=== PATIENT | male | born 1975 | race Caucasian/White ===

== ENCOUNTER 2018-06-28 02:41 | Emergency (ER) | payer BC ==
[~2018-06-28] VITALS: Ht 180.3 cm; Wt 102.3 kg
[2018-06-28 02:46] VITALS: Ht 180.3 cm; Wt 102.3 kg
[2018-06-28] MEDS ORDERED: LISINOPRIL2.5 MG (02:47)
[2018-06-28] MEDS ORDERED: HYDROCHLOROTH12.5 M1 (02:47)
[2018-06-28 03:32] LABS: BASOPHILS 0.1 % (0-2); EOSINOPHILS 2.2 % (0-7); HEMATOCRIT 43.5 % (42.0-54.0); HEMOGLOBIN 15.8 g/dL (13.5-17.5); IMMATURE GRANULOCYTES 0.1 % (0-5); MCH 31.9 pg (26.0-34.0); MCHC 36.3 g/dL (31.0-37.0); MCV 87.7 fL (80.0-100.0); MEAN PLATELET VOLUME 9.4 fL (7.4-10.4); NEUTROPHILS 43.6 % (40-80); PLATELET COUNT 174 10x3/uL (130-400); RBC 4.96 10x6/uL (4.20-6.10); RDW 12.9 % (11.5-14.5); WBC 8.2 10x3/uL (4.8-10.8)
[2018-06-28 03:41] LABS: CALC OSMOLALITY 281 mosm/kg (275-300); CARBON DIOXIDE 26.6 mmol/L (21.0-32.0); CHLORIDE - SERUM 99 mmol/L (98-107); GLUCOSE 222 mg/dL (74-106); POTASSIUM - SERUM 3.8 mmol/L (3.5-5.1); SODIUM 137 mmol/L (136-145); UREA NITROGEN 16 mg/dL (7-18); eGFR NON AFRICAN AMERICAN 87 mL/min (90-120)
[2018-06-28 04:05] VITALS: BP 121/77
== END 2018-06-28 04:05 | disposition home or self-care (01) ==
LOC: D.ER 02:41
PROVIDERS: Emergency Medicine
DX: G43.909 Migraine, unspecified, not intractable, without status migrainosus (principal); E11.9 Type 2 diabetes mellitus without complications; I10 Essential (primary) hypertension; K21.9 Gastro-esophageal reflux disease without esophagitis

== ENCOUNTER 2019-08-23 14:44 | Inpatient (IN) | payer OTHER ==
[~2019-08-23] VITALS: Ht 180.3 cm; Wt 110.8 kg
[~2019-08-23 14:44] MED LIST: HYDROCHLOROTH12.5 M1; LISINOPRIL2.5 MG
[2019-08-23 18:05] LABS: HEMATOCRIT 44.6 % (42.0-54.0); MCH 33.4 pg (26.0-34.0); MCHC 38.1 g/dL (31.0-37.0); MCV 87.6 fL (80.0-100.0); MEAN PLATELET VOLUME 10.2 fL (7.4-10.4); PLATELET COUNT 168 10x3/uL (130-400); RBC 5.09 10x6/uL (4.20-6.10); RDW 12.5 % (11.5-14.5)
[2019-08-23 18:21] LABS: BILIRUBIN - TOTAL 1.03 mg/dL (0.2-1.3); CARBON DIOXIDE 25.3 mmol/L (21.0-32.0); CHLORIDE - SERUM 91 mmol/L (98-107); CKMB 0.3 U/L (0.0-3.6); POTASSIUM - SERUM 3.9 mmol/L (3.5-5.1); SODIUM 127 mmol/L (136-145); TROPONIN-I < 0.017 ng/mL (0.000-0.060)
[2019-08-23 18:25] LABS: ALBUMIN 3.2 g/dL (3.4-5.0); ALKALINE PHOSPHATASE 91 U/L (46-116); CALC OSMOLALITY 270 mosm/kg (275-300); CALCIUM 6.9 mg/dL (8.5-10.1); CREATINE KINASE 52 UL (21-232); CREATININE - SERUM 0.7 mg/dL (0.6-1.3); PROTEIN - SERUM 6.7 g/dL (6.4-8.2); UREA NITROGEN 10 mg/dL (7-18); eGFR NON AFRICAN AMERICAN > 90 mL/min (90-120)
[2019-08-23 18:31] LABS: GLUCOSE 412 mg/dL (74-106)
[2019-08-23 18:50] LABS: LYMPHOCYTES 37 % (15-50); MONOCYTES 2 % (2-11); NEUTROPHILS 58 % (40-80); PLATELET ESTIMATE NORMAL
[2019-08-23 18:55] LABS: APPEARANCE CLEAR (CLEAR); BILIRUBIN NEGATIVE (NEGATIVE); COLOR YELLOW (YELLOW); GLUCOSE 1000 mg/dL (NEGATIVE); KETONE MODERATE mg/dL (NEGATIVE); NITRITE NEGATIVE (NEGATIVE); PROTEIN NEGATIVE (NEGATIVE); SPECIFIC GRAVITY 1.015 (1.005-1.020); UROBILINOGEN NORMAL (NORMAL)
[2019-08-23 18:58] LABS: UDS - AMPHET NEGATIVE QUAL (NEGATIVE); UDS - BARB NEGATIVE QUAL (NEGATIVE); UDS - BENZO NEGATIVE QUAL (NEGATIVE); UDS - COCAINE NEGATIVE QUAL (NEGATIVE); UDS - OPIATE NEGATIVE QUAL (NEGATIVE); UDS - PCP NEGATIVE QUAL (NEGATIVE); UDS - THC NEGATIVE QUAL (NEGATIVE)
[2019-08-23 19:02] LABS: ALT (SGPT) 65 U/L (10-68)
[2019-08-23 19:53] LABS: THYROID STIMULATING HORMONE 1.72 uIU/mL (0.36-3.74)
[2019-08-23 19:54] LABS: T4 THYROXINE 10.7 ug/dL (4.7-13.3)
--- NOTE | 2019-08-23 20:08 | NUR ---
PT RESTING ON BED. NO S/S OF ACUTE DISTRESS NOTED. PT AWAKE AND ALERT. PT UPDATED ON PLAN OF CARE.
--- NOTE | 2019-08-23 20:30 | NUR ---
PT C/O PORTER, BACK PAIN, AND CONCERNED ABOUT BP SINCE HE DID NOT TAKE BP MEDS TODAY. PT BP 145/98, JORDY HIGUERA NOTIFIED.
--- NOTE | 2019-08-23 21:48 | NUR ---
PT RESTING ON BED. PT FAMILY AT BEDSIDE.
[2019-08-23 22:58] VITALS: BP 152/93; Ht 180.3 cm; Wt 110.8 kg
[2019-08-23] MEDS ORDERED: LISINOPRIL-HCT1 EAC7 PO (23:08)
[2019-08-23] MEDS ORDERED: ELAVIL10 MG PO (23:08)
[2019-08-23] MEDS ORDERED: LIPITOR10 MG PO (23:09)
[2019-08-23] MEDS ORDERED: OMEPRAZOLE20 M1 PO (23:09)
[2019-08-23] MEDS ORDERED: ATIVAN0.5 MG PO (23:10)
--- NOTE | 2019-08-23 23:36 | NUR ---
PAGENaya RASMUSSEN IN REGARDS TO PATIENT'S 357 BLOOD SUGAR
--- NOTE | 2019-08-23 23:39 | NUR ---
GRADY AUTHORIZED A ONE TIME DOSE USING THE PATIENT'S CURRENT SLIDING SCALE
--- NOTE | 2019-08-24 03:42 | NUR ---
PAGED GRADY PER PATIENT'S REQUEST IN REGARDS TO BACK PAIN.
[2019-08-24 03:54] VITALS: BP 134/98
[2019-08-24 05:11] LABS: MAGNESIUM - SERUM 1.9 mg/dL (1.8-2.4)
[2019-08-24 05:12] LABS: PHOSPHOROUS 4.7 mg/dL (2.5-4.9)
[2019-08-24 05:13] LABS: GLUCOSE 368 mg/dL (74-106); UREA NITROGEN 14 mg/dL (7-18)
[2019-08-24 05:14] LABS: CALC OSMOLALITY 281 mosm/kg (275-300); POTASSIUM - SERUM 3.6 mmol/L (3.5-5.1); eGFR NON AFRICAN AMERICAN 87 mL/min (90-120)
[2019-08-24 05:15] LABS: CARBON DIOXIDE 28.6 mmol/L (21.0-32.0)
[2019-08-24 05:16] LABS: CALCIUM 6.9 mg/dL (8.5-10.1); CHLORIDE - SERUM 98 mmol/L (98-107); SODIUM 133 mmol/L (136-145)
[2019-08-24 05:17] LABS: ALKALINE PHOSPHATASE 78 U/L (46-116); ALT (SGPT) 61 U/L (10-68)
[2019-08-24 05:18] LABS: ALBUMIN 3.2 g/dL (3.4-5.0); BILIRUBIN - TOTAL 0.28 mg/dL (0.2-1.3); PROTEIN - SERUM 5.9 g/dL (6.4-8.2)
[2019-08-24 08:07] VITALS: BP 141/95
--- NOTE | 2019-08-24 08:23 | NUR ---
[facility] "MY BACK IS HURTING IN THE RIGHT LOWER AND THEY STILL HAVE NOT DONE A MRI ON IT. " EXPLAINED TO PT THAT I WOULD SPEAK TO THE MD WHEN THEY ROUND. NO S/S OF ACUTE DISTRESS. CL IN PLACE.
--- NOTE | 2019-08-24 09:15 | NUR ---
CALLED [facility] ABOUT PT REQUEST, "I AM HAVING BACK PAIN AND THAT IS WHY I CAME IN. I FIGURED THEY WOULD DO AN MRI." REPORTED CONVERSATION, CA-6.9, NA-133, BP THIS AM AND NO BP MED ON RECORD TO BE GIVEN. TO FOR LISINOPRIL 20MG FIRST DOSE NOW.
[2019-08-24 12:31] LABS: HEMATOCRIT 41.2 % (42.0-54.0); HEMOGLOBIN 15.4 g/dL (13.5-17.5); MCH 33.2 pg (26.0-34.0); MCHC 37.4 g/dL (31.0-37.0); MCV 88.8 fL (80.0-100.0); MEAN PLATELET VOLUME 10.9 fL (7.4-10.4); PLATELET COUNT 170 10x3/uL (130-400); RBC 4.64 10x6/uL (4.20-6.10); RDW 12.7 % (11.5-14.5); WBC 4.7 10x3/uL (4.8-10.8)
[2019-08-24 12:48] VITALS: BP 137/89
[2019-08-24 12:53] LABS: EOSINOPHILS 4 % (0-7); LYMPHOCYTES 50 % (15-50); MONOCYTES 3 % (2-11); NEUTROPHILS 41 % (40-80); PLATELET ESTIMATE NORMAL
--- NOTE | 2019-08-24 13:59 | NUR ---
DC IV WITH TIP INTACT. NO REDDNESS OR SWELLING NOTED.
[2019-08-24] MEDS ORDERED: VALTREX500 MG PO ×2 (14:23→14:27)
[2019-08-24] MEDS ORDERED: GLUCOTROL 5 MG T5 MG PO (14:23)
[2019-08-24] MEDS ORDERED: PREDNISONE20 MG PO (14:23)
--- NOTE | 2019-08-24 16:18 | NUR ---
DC INSTRUCTIONS AND EDUCATION DONE WITH PT AND FAMILY. FAMILY AGREES THEY DO HAVE LANCETS AND GLUCOMETER AND TEST STRIPS. NO S.S OF ACUTE DISTRESS. CL IN PLACE.
--- NOTE | 2019-08-24 16:31 | MORECARE ---
CASE MANAGEMENT DISCHARGE SUMMARY PATIENT: RICARDA TAYLOR UNIT: [id number] ADM DATE: 08/23/19 AGE: 43 : 75 SEX: M ROOM/BED: D.1209 AUTHOR: SULMA MCFADDEN PHYSICIAN: REFERRING PHYSICIAN: SHANIKA STILES DO DATE OF SERVICE: 08/24/19 Discharge Plan Patient Name: RICARDA TAYLOR [facility] [facility] 1975 Planned Disposition: Home Anticipated Discharge Date: 08/24/19 Discharge Date: 08/24/2019 Expected LOS: 1 Initial Reviewer: [email or web address] Initial Review Date: 08/23/2019 Generated: 08/24/19 5:30 pm Patient Name: RICARDA TAYLOR Page 89158 at 1631 All edits/amendments must be made on the electronic document DICTATION DATE: 08/24/19 1630 SUPERVISOR HEAVY EQUIPMENT: ROB 08/24/19 1630 RPT#: [id number] DC DATE:08/24/19 STATUS: DIS IN [facility] [address] [place] [address] END OF REPORT
--- NOTE | 2019-08-24 16:38 | MORECARE ---
CASE MANAGEMENT DISCHARGE SUMMARY PATIENT: RICARDA TAYLOR UNIT: [id number] ADM DATE: 08/23/19 AGE: 43 : 75 SEX: M ROOM/BED: D.1209 AUTHOR: SULMA MCFADDEN PHYSICIAN: REFERRING PHYSICIAN: SHANIKA STILES DO DATE OF SERVICE: 08/24/19 Discharge Plan Patient Name: RICARDA TAYLOR [facility] 1975 Planned Disposition: Home Anticipated Discharge Date: 08/24/19 Discharge Date: 08/24/2019 Expected LOS: 1 Initial Reviewer: [email or web address] Initial Review Date: 08/23/2019 Generated: 08/24/19 5:37 pm DCPIA - Discharge Planning Initial Assessment Updated by [email or web address]: Holly Capmos on 08/24/19 4:32 pm * Is the patient Alert and Oriented? Yes * How many steps to enter\exit or inside your home? 5 w/ rail * PCP DR KING * Pharmacy [facility] ON [facility] * Preadmission Environment Home with Family * ADLs Independent * Equipment None * Other Equipment DENIES ANY DME * List name and contact numbers for known caregivers / representatives who currently or will assist patient after discharge: RANDALL TAYLOR- [phone]- * Verbal permission to speak to the caregivers and representatives has been obtained from the patient. No * Community resources currently utilized None * Please name any agencies selected above. N/A * Additional services required to return to the preadmission environment? No * Can the patient safely return to the preadmission environment? Yes * Has this patient been hospitalized within the prior 30 days at any hospital? No Last DP export: 08/24/19 3:31 p Patient Name: RICARDA TAYLOR Page [phone] at 1638 All edits/amendments must be made on the electronic document DICTATION DATE: 08/24/191636 SALES REPRESENTATIVE RAW FIBERS: ROB 08/24/19 1637 RPT#: [id number] DC DATE:08/24/19 STATUS: DIS IN [facility] [address] [place] [address] END OF REPORT
--- NOTE | 2019-08-24 16:50 | MORECARE ---
CASE MANAGEMENT DISCHARGE SUMMARY PATIENT: RICARDA TAYLOR UNIT: [id number] ADM DATE: 08/23/19 AGE: 43 : 75 SEX: M ROOM/BED: D.1209 AUTHOR: SULMA MCFADDEN PHYSICIAN: REFERRING PHYSICIAN: SHANIKA STILES DO DATE OF SERVICE: 08/24/19 Discharge Plan Patient Name: RICARDA TAYLOR Facility: [facility]:[place] : 1975 Planned Disposition: Home Anticipated Discharge Date: 08/24/19 Discharge Date: 08/24/2019 Expected LOS: 1 Initial Reviewer: [email or web address] Initial Review Date: 08/23/2019 Generated: 08/24/19 5:50 pm Comments DCP- Discharge Planning Updated by [email or web address]: Holly Campos on 08/24/19 3:[address] LATE ENTRY 1600 CM RECEIVED MD ORDER TO ASSESS FOR DISCHARGE NEEDS. CM MET WITH THE PATIENT AT BACK NURSING DESK. HE IS DRESSED AND READY TO GO HOME. CM HAD ASK THE STAFF TO CHECK WITH THE PATIENT REGARDING GLUCOMETER, LANCETS AND GLUCOSE STRIPS. HE STATED HE HAS THEM. HE CONFIRMED WITH CM THAT HE HAS THESE SUPPLIES. THE PATIENT WORKS AT [employer] AND HE UTILIZES [facility] ON [facility]. HE DENIES ANY ADDITIONAL DME OR NEED. HE DENIES THE NEED FOR ANY HOME HEALTH SERVICES OR COMMUNITY SERVICES. HIS SPOUSE, RANDALL TAYLOR, IS A NURSE. THE PATIENT HAS TRANSPORTATION TO HOME. PATIENT IS READY FOR DISCHARGE. HE HAD WANTED A COPY OF HIS XRAYS ON DISC. PRIMARY NURSE CALLED. TECHS WERE NOT AVAILABLE AT THAT TIME. PATIENT WAS PROVIDED WITH THE NUMBER FOR IMAGING TO CALL IN THE AM. RADIOLOGY WILL PREPARE THE DISC. DCPIA - Discharge Planning Initial Assessment Updated by [id number]: Holly Campos on 08/24/19 4:32 pm * Is the patient Alert and Oriented? Yes * How many steps to enter\exit or inside your home? 5 w/ rail * PCP DR KING * Pharmacy [facility] ON [facility] * Preadmission Environment Home with Family * ADLs Independent * Equipment None * Other Equipment DENIES ANY DME * List name and contact numbers for known caregivers / representatives who currently or will assist patient after discharge: RANDALL TAYLOR- [phone]- * Verbal permission to speak to the caregivers and representatives has been obtained from the patient. No * Community resources currently utilized None * Please name any agencies selected above. N/A * Additional services required to return to the preadmission environment? No * Can the patient safely return to the preadmission environment? Yes * Has this patient been hospitalized within the prior 30 days at any hospital? No Last DP export: 08/24/19 3:37 p Patient Name: RICARDA TAYLOR Page [id number] at 1650 All edits/amendments must be made on the electronic document DICTATION DATE: 08/24/191649 HEAD OF PARTNER DEVELOPMENT: ROB 08/24/191649 RPT#: [id number] DC DATE:08/24/19 STATUS: DIS IN [facility] [address] [place] [address] END OF REPORT
--- NOTE | 2019-08-25 08:57 | MORECARE ---
CASE MANAGEMENT DISCHARGE SUMMARY PATIENT: RICARDA TAYLOR UNIT: [id number] ADM DATE: 08/23/19 AGE: 43 : 75 SEX: M ROOM/BED: D.1209 AUTHOR: SULMA MCFADDEN PHYSICIAN: REFERRING PHYSICIAN: SHANIKA STILES DO DATE OF SERVICE: 08/25/19 Discharge Plan Patient Name: RICARDA TAYLOR Facility: [facility]:[place] : 1975 Planned Disposition: Home Anticipated Discharge Date: 08/24/19 Discharge Date: 08/24/2019 Expected LOS: 1 Initial Reviewer: [email or web address] Initial Review Date: 08/23/2019 Generated: 08/25/19 9:57 am Comments DCP- Discharge Planning Updated by [email or web address]: Holly Campos on 08/24/19 3:[address] LATE ENTRY 1600 CM RECEIVED MD ORDER TO ASSESS FOR DISCHARGE NEEDS. CM MET WITH THE PATIENT AT BACK NURSING DESK. HE IS DRESSED AND READY TO GO HOME. CM HAD ASK THE STAFF TO CHECK WITH THE PATIENT REGARDING GLUCOMETER, LANCETS AND GLUCOSE STRIPS. HE STATED HE HAS THEM. HE CONFIRMED WITH CM THAT HE HAS THESE SUPPLIES. THE PATIENT WORKS AT [employer] AND HE UTILIZES [facility] ON [facility]. HE DENIES ANY ADDITIONAL DME OR NEED. HE DENIES THE NEED FOR ANY HOME HEALTH SERVICES OR COMMUNITY SERVICES. HIS SPOUSE, RANDALL TAYLOR, IS A NURSE. THE PATIENT HAS TRANSPORTATION TO HOME. PATIENT IS READY FOR DISCHARGE. HE HAD WANTED A COPY OF HIS XRAYS ON DISC. PRIMARY NURSE CALLED. TECHS WERE NOT AVAILABLE AT THAT TIME. PATIENT WAS PROVIDED WITH THE NUMBER FOR IMAGING TO CALL IN THE AM. RADIOLOGY WILL PREPARE THE DISC. DCPIA - Discharge Planning Initial Assessment Updated by [email or web address]: Holly Campos on 08/24/19 4:32 pm * Is the patient Alert and Oriented? Yes * How many steps to enter\exit or inside your home? 5 w/ rail * PCP DR KING * Pharmacy [facility] ON [facility] * Preadmission Environment Home with Family * ADLs Independent * Equipment None * Other Equipment DENIES ANY DME * List name and contact numbers for known caregivers / representatives who currently or will assist patient after discharge: RANDALL TAYLOR- [phone]- * Verbal permission to speak to the caregivers and representatives has been obtained from the patient. No * Community resources currently utilized None * Please name any agencies selected above. N/A * Additional services required to return to the preadmission environment? No * Can the patient safely return to the preadmission environment? Yes * Has this patient been hospitalized within the prior 30 days at any hospital? No Last DP export: 08/24/19 3:50 p Patient Name: RICARDA TAYLOR Page [phone] at 0857 All edits/amendments must be made on the electronic document DICTATION DATE: 08/25/19856 CASH GRAIN FARMER: ROB 08/25/19856 RPT#: [id number] DC DATE:08/24/19 STATUS: DIS IN [facility] [address] [place] [address] END OF REPORT
== END 2019-08-24 16:20 | disposition home or self-care (01) | DRG 74 ==
LOC: D.ER 14:44 → D.M3 22:04
PROVIDERS: Family Medicine; Internal Medicine Nephrology; ADMIT Family Medicine; ATTEND Family Medicine
DX: G51.0 Bell's palsy (principal); E87.1 Hypo-osmolality and hyponatremia; E11.65 Type 2 diabetes mellitus with hyperglycemia; I10 Essential (primary) hypertension; E83.51 Hypocalcemia; M54.5 Low back pain; G43.909 Migraine, unspecified, not intractable, without status migrainosus; Z87.891 Personal history of nicotine dependence

== ENCOUNTER → 2020-07-28 15:38 | Outpatient (CLI) | payer OTHER ==
[2019-08-23 22:58] VITALS: BMI 34.1
[~2020-07-28 15:38] MED LIST changes: +ATIVAN0.5 MG PO; +ELAVIL10 MG PO; +GLUCOTROL 5 MG T5 MG PO; +LIPITOR10 MG PO; +LISINOPRIL-HCT1 EAC7 PO; +OMEPRAZOLE20 M1 PO; +PREDNISONE20 MG PO; +PROTONIX40 MG PO; +PROZAC20 MG PO; +REQUIP0.25 MG PO; +SOLIQUA 100 UNIT3 ML SQ; +VALTREX500 MG PO
== END | disposition home or self-care (01) ==
LOC: D.US 15:38
PROVIDERS: ATTEND Family Medicine
DX: R60.0 Localized edema (principal)

== ENCOUNTER 2020-07-28 17:25 | Inpatient (IN) | payer OTHER ==
[~2020-07-28] VITALS: Ht 180.3 cm; Wt 108.9 kg
[~2020-07-28 17:25] MED LIST changes: -PROTONIX40 MG PO; -PROZAC20 MG PO; -REQUIP0.25 MG PO; -SOLIQUA 100 UNIT3 ML SQ
--- NOTE | 2020-07-28 18:30 | NUR ---
COVID-19 SWAB OBTAINED AND SENT TO THE LAB.
[2020-07-28 18:32] LABS: BASOPHILS 0.2 % (0-2); EOSINOPHILS 2.9 % (0-7); HEMATOCRIT 44.8 % (42.0-54.0); HEMOGLOBIN 15.7 g/dL (13.5-17.5); IMMATURE GRANULOCYTES 0.1 % (0-5); LYMPHOCYTES 28.7 % (15-50); MCH 31.8 pg (26.0-34.0); MCV 90.9 fL (80.0-100.0); MEAN PLATELET VOLUME 9.3 fL (7.4-10.4); MONOCYTES 7.2 % (2-11); NEUTROPHILS 60.9 % (40-80); PLATELET COUNT 168 10x3/uL (130-400); RBC 4.93 10x6/uL (4.20-6.10); RDW 12.9 % (11.5-14.5); WBC 8.5 10x3/uL (4.8-10.8)
[2020-07-28 18:33] LABS: CALC OSMOLALITY 277 mosm/kg (275-300); CALCIUM 9.1 mg/dL (8.5-10.1); CARBON DIOXIDE 26.6 mmol/L (21.0-32.0); CHLORIDE - SERUM 101 mmol/L (98-107); CREATININE - SERUM 0.9 mg/dL (0.6-1.3); SODIUM 137 mmol/L (136-145); UREA NITROGEN 11 mg/dL (7-18); eGFR NON AFRICAN AMERICAN > 90 mL/min (90-120)
[2020-07-28 18:35] LABS: GLUCOSE 193 mg/dL (74-106)
[2020-07-28 18:36] LABS: APTT 26.1 SECONDS (22.8-39.4); PROTIME 13.2 SECONDS (11.6-15.0)
[2020-07-28 18:39] LABS: ALBUMIN 3.5 g/dL (3.4-5.0); ALKALINE PHOSPHATASE 93 U/L (30-120); ALT (SGPT) 40 U/L (10-68); BILIRUBIN - TOTAL 0.78 mg/dL (0.2-1.3); PROTEIN - SERUM 7.7 g/dL (6.4-8.2)
--- NOTE | 2020-07-28 19:00 | NUR ---
REPORT TO JENY GAMEZ
[2020-07-28] MEDS ORDERED: PROTONIX40 MG PO (22:38)
[2020-07-28] MEDS ORDERED: PROZAC20 MG PO (22:38)
[2020-07-28] MEDS ORDERED: REQUIP0.25 MG PO (22:39)
[2020-07-28] MEDS ORDERED: SOLIQUA 100 UNIT3 ML SQ (22:40)
--- NOTE | 2020-07-28 23:00 | NUR ---
PT BROUGHT TO FLOOR VIA STRETCHER, AMBULATED TO BED WITHOUT DIFFICULTY. RIGHT LEG RED AND SWOLLEN. PROPPED ON PILLOW. STATES PAIN 4/10 AT THIS TIME. STATES IT HURTS TO WALK ON. IV RIGHT HAND INFUSING NS @ 75. FSBS 312, GAVE INSULIN ORDERED, SEE MAR. PROVIDED WATER. DENIES OTHER NEEDS AT THIS TIME. CL IN REACH, WILL CTM
[2020-07-29] MEDS ORDERED: GLUCOTROL 5 MG T5 MG PO (00:53)
[2020-07-29 01:24] VITALS: BMI 33.5
[2020-07-29 04:00] VITALS: BP 130/86
[2020-07-29 07:04] LABS: BASOPHILS 0.3 % (0-2); EOSINOPHILS 3.3 % (0-7); HEMATOCRIT 44.1 % (42.0-54.0); HEMOGLOBIN 14.9 g/dL (13.5-17.5); IMMATURE GRANULOCYTES 0.3 % (0-5); LYMPHOCYTES 44.1 % (15-50); MCH 31.4 pg (26.0-34.0); MCHC 33.8 g/dL (31.0-37.0); MCV 92.8 fL (80.0-100.0); MEAN PLATELET VOLUME 9.7 fL (7.4-10.4); MONOCYTES 8.4 % (2-11); NEUTROPHILS 43.6 % (40-80); PLATELET COUNT 178 10x3/uL (130-400); RBC 4.75 10x6/uL (4.20-6.10); WBC 7.6 10x3/uL (4.8-10.8)
--- NOTE | 2020-07-29 07:15 | NUR ---
RECEIVED BEDSIDE REPORT. PT LAYING IN BED A&O X4, DENIES PAIN. PIV IN RIGHT HAND, PATENT AND INFUSING, NO REDNESS OR SWELLING. SWELLING AND WEAKNESS IN RLE. PT ABLE TO AMBULATE WITH ONE PERSON ASSIST. EDUCATED PT ON CL AND NEEDS, VERBALIZED UNDERSTANDING. BED LOW, RAILS X2. CL IN REACH, WILL CONTINUE TO MONITOR.
[2020-07-29 07:26] LABS: INR 0.97 (0.85-1.17); PROTIME 12.8 SECONDS (11.6-15.0)
[2020-07-29 07:44] LABS: CALC OSMOLALITY 287 mosm/kg (275-300); CALCIUM 8.3 mg/dL (8.5-10.1); CARBON DIOXIDE 28.6 mmol/L (21.0-32.0); CHLORIDE - SERUM 102 mmol/L (98-107); CREATININE - SERUM 0.9 mg/dL (0.6-1.3); GLUCOSE 238 mg/dL (74-106); PHOSPHOROUS 4.6 mg/dL (2.5-4.9); SODIUM 140 mmol/L (136-145); eGFR NON AFRICAN AMERICAN > 90 mL/min (90-120)
[2020-07-29 07:47] LABS: UREA NITROGEN 15 mg/dL (7-18)
[2020-07-29 09:48] VITALS: BP 117/70
--- NOTE | 2020-07-29 11:15 | NUR ---
PT C/O 04/28 PAIN, PROVIDED MEDS PER ORDER. BED LOW, CL IN REACH.
[2020-07-29 12:00] VITALS: BP 123/79
[2020-07-29 13:15] VITALS: BMI 33.4
--- NOTE | 2020-07-29 14:30 | NUR ---
PT LAYING IN BED, CRYING, STATES HE WANTS TO GO HOME. EDUCATED PT ON DVT AND RISKS. SPOKE SPOKE WITH DR ALEXANDRE AND SHE STATED PT NEEDS TO SEE DR PATEL ABOUT BEING D/C ON ELIQUIS. WILL CONTINUE TO MONITOR.
[2020-07-29 17:14] VITALS: BP 124/81
[2020-07-29 20:00] VITALS: BP 121/81
--- NOTE | 2020-07-29 21:00 | NUR ---
PT SITTING UP IN BED WITHOUT DISTRESS, AOX4. AT BEDSIDE. PT UPSET THAT DR DAVILA DID NOT COME BY TO SEE HIM TODAY, STATES HE WANTS TO GO HOME. STATES PAIN IN LEG 05/28 AT THIS TIME. GAVE MORPHINE ORDERED. PT PROVIDED LINENS AND BATHING SUPPLIES, GIVING PT BATH. DENIES OTHER NEEDS AT THIS TIME. CL IN REACH, WILL CTM
[2020-07-30] VITALS: BP 121/56
--- NOTE | 2020-07-30 01:30 | NUR ---
PT STATES HIS LEG IS HURTING REALLY BAD TONIGHT, JUST GOT UP TO USE BATHROOM. STATES PAIN 9/10. GAVE MORPHINE AND CALLED [facility]SE[facility]ERRE APN. RECIEVED ORDER FOR ONE TIME DOSE MORPHINE 1MG NOW AND START HOME DOSE OF REQUIP. GAVE ORDERED. WILL CTM
[2020-07-30 04:00] VITALS: BP 110/85
[2020-07-30 04:51] LABS: BASOPHILS 0.3 % (0-2); EOSINOPHILS 2.9 % (0-7); HEMATOCRIT 41.7 % (42.0-54.0); HEMOGLOBIN 14.3 g/dL (13.5-17.5); IMMATURE GRANULOCYTES 0.3 % (0-5); LYMPHOCYTES 37.8 % (15-50); MCH 31.6 pg (26.0-34.0); MCHC 34.3 g/dL (31.0-37.0); MCV 92.1 fL (80.0-100.0); MEAN PLATELET VOLUME 9.4 fL (7.4-10.4); MONOCYTES 5.6 % (2-11); NEUTROPHILS 53.1 % (40-80); PLATELET COUNT 180 10x3/uL (130-400); RBC 4.53 10x6/uL (4.20-6.10); RDW 12.9 % (11.5-14.5); WBC 7.7 10x3/uL (4.8-10.8)
[2020-07-30 05:06] LABS: CALC OSMOLALITY 279 mosm/kg (275-300); CALCIUM 8.1 mg/dL (8.5-10.1); CARBON DIOXIDE 29.5 mmol/L (21.0-32.0); CHLORIDE - SERUM 101 mmol/L (98-107); CREATININE - SERUM 1.1 mg/dL (0.6-1.3); GLUCOSE 220 mg/dL (74-106); MAGNESIUM - SERUM 1.8 mg/dL (1.8-2.4); PHOSPHOROUS 4.2 mg/dL (2.5-4.9); POTASSIUM - SERUM 4.1 mmol/L (3.5-5.1); SODIUM 136 mmol/L (136-145); UREA NITROGEN 14 mg/dL (7-18); eGFR NON AFRICAN AMERICAN 77 mL/min (90-120)
[2020-07-30 05:15] LABS: INR 0.95 (0.85-1.17); PROTIME 12.7 SECONDS (11.6-15.0)
[2020-07-30 05:16] LABS: APTT 38.1 SECONDS (22.8-39.4)
--- NOTE | 2020-07-30 06:15 | NUR ---
PT STATES PAIN 7/10 IN RIGHT ANKLE. GAVE MORPHINE ORDERED. FSBS 255, GAVE INSULIN PER SS, SEE MAR. DENIES OTHER NEEDS AT THIS TIME. CL IN REACH, WILL CTM
--- NOTE | 2020-07-30 07:15 | NUR ---
RECEIVED BEDSIDE REPORT. PT LAYING IN BED, A&O X4. C/O PAIN 05/28, PROVIDED PAIN MEDS PER ORDER. PIV IN RIGHT HAND, PATENT AND INFUSING, NO REDNESS OR SWELLING. RLE SLIGHTLY SWOLLEN. PT ABLE TO AMBULATE WITH ONE PERSON ASSIST. EDUCATED PT ON CL AND NEEDS, VERBALIZED UNDERSTANDING. BED LOW, RAILS X2. CL IN REACH, WILL CONTINUE TO MONITOR.
[2020-07-30 09:24] VITALS: BP 144/92
--- NOTE | 2020-07-30 09:45 | NUR ---
PT C/O OF NOT UNDERSTANDING THE CONVERSATION WITH MD, EDUCATED PT ON DVT RISKS AND MD PLAN OF CARE. PT STATED HE STILL DID NOT UNDERSTAND AND WOULD LIKE HIS TO SPEAK WITH THE MD. PAGED DR DAVILA AND SHE SPOKE WITH . HE STATED HE UNDERSTOOD AND WOULD EXPLAIN TO PT. WILL CONTINUE TO MONITOR.
[2020-07-30 11:29] VITALS: Ht 180.3 cm; Wt 108.9 kg
[2020-07-30 13:51] VITALS: BP 132/85
--- NOTE | 2020-07-30 14:26 | NUR ---
PT C/O 06/28 PAIN, PROVIDED PAIN MEDS OER ORDER.
--- NOTE | 2020-07-30 15:57 | NUR ---
PTS SPOUSE BELIEVES PT MAY HAVE A FAMILY HISTORY OF FACTOR 5 LEIDEN MUTATION, CALLED [facility]A [facility]RY AND DISCUSSED. PT WAS TESTED THIS MORNING FOR MUTATION AND WAS NEGATIVE. EDUCATED PT AND FAMILY IN REGARDS TO LAB WORK, VERBALIZED UNDERSTANDING. WILL CONTINUE TO MONITOR.
[2020-07-30 17:43] VITALS: BP 137/85
--- NOTE | 2020-07-30 19:00 | NUR ---
BEDSIDE REPORT RECEIVED AND CARE OF PT ASSUMED. PT LYING IN SUPINE POSITION WITH EYES CLOSED AND EASY RESPIRATIONS. IV TO RIGHT HAND PATENT WITH NS INFUSING AT 75 ML/HR. FAMILY MEMBER IS AT BEDSIDE.
[2020-07-30 20:00] VITALS: BP 131/79
--- NOTE | 2020-07-30 20:09 | NUR ---
HS MEDICATIONS GIVEN TO INCLUDE ATIVAN 0.5 MG PO PER PRN ORDER FOR ANXIETY.
--- NOTE | 2020-07-30 20:10 | NUR ---
FSBS 258 THIS CHECK REQUIRING COVERAGE WITH 6 UNITS OF INSULIN PER SLIDING SCALE. GAVE X2 ORANGE BILL FOR HS SNACK.
[2020-07-31] VITALS: BP 110/70
[2020-07-31 04:00] VITALS: BP 106/73
[2020-07-31 06:29] LABS: BASOPHILS 0.3 % (0-2); EOSINOPHILS 3.1 % (0-7); HEMATOCRIT 42.8 % (42.0-54.0); HEMOGLOBIN 14.7 g/dL (13.5-17.5); IMMATURE GRANULOCYTES 0.1 % (0-5); LYMPHOCYTES 32.7 % (15-50); MCH 31.4 pg (26.0-34.0); MCHC 34.3 g/dL (31.0-37.0); MCV 91.5 fL (80.0-100.0); MEAN PLATELET VOLUME 9.1 fL (7.4-10.4); MONOCYTES 7.4 % (2-11); NEUTROPHILS 56.4 % (40-80); PLATELET COUNT 174 10x3/uL (130-400); RBC 4.68 10x6/uL (4.20-6.10); RDW 12.7 % (11.5-14.5); WBC 7.4 10x3/uL (4.8-10.8)
[2020-07-31 06:50] LABS: INR 0.99 (0.85-1.17); PROTIME 13.1 SECONDS (11.6-15.0)
[2020-07-31 06:54] LABS: APTT 27.3 SECONDS (22.8-39.4)
[2020-07-31 07:09] LABS: CALC OSMOLALITY 276 mosm/kg (275-300); CARBON DIOXIDE 26.1 mmol/L (21.0-32.0); CHLORIDE - SERUM 98 mmol/L (98-107); CREATININE - SERUM 0.8 mg/dL (0.6-1.3); GLUCOSE 200 mg/dL (74-106); PHOSPHOROUS 4.5 mg/dL (2.5-4.9); POTASSIUM - SERUM 4.3 mmol/L (3.5-5.1); SODIUM 135 mmol/L (136-145); UREA NITROGEN 14 mg/dL (7-18); eGFR NON AFRICAN AMERICAN > 90 mL/min (90-120)
--- NOTE | 2020-07-31 07:46 | NUR ---
ALERT AND ORIENTED. LUNGS CLEAR BILATERALLY. HEART SOUNDS S1 AND S2 HEARD IN ALL MURPHY. BOWEL SOUNDS ACTIVE X 4. IV TO RIGHT HAND PATENT WITHOUT REDNES. DENIES NEEDS. BED LOW. CALL ROBISON AND PERSONAL ITEMS IN REACH. WILL CONTINUE TO MONITOR.
[2020-07-31 08:14] LABS: PSA - FREE 0.29 ng/mL
[2020-07-31 09:54] VITALS: BP 124/78
[2020-07-31] MEDS ORDERED: ELIQUIS5 MG PO (11:33)
--- NOTE | 2020-07-31 12:23 | NUR ---
PATIENT SLEEPING. WILL CONTINUE TO MONITOR.
[2020-07-31 12:43] VITALS: BP 134/84
[2020-07-31] MEDS ORDERED: HYDROCODON-ACE1 EA10 PO (12:48)
--- NOTE | 2020-07-31 13:33 | NUR ---
DISCHARGE EDUCATION PROVIDED BOTH WRITTEN AND VERBAL. VERBALIZED UNDERSTANDING. DENIES FURTHER QUESTIONS. RX PROVIDED FOR PRN PAIN MEDICAITON PER MD. DENIES FURTHER NEEDS. IV REMOVED FROM LEFT HAND WITH TIP INTACT. PATIENT DC HOME WITH WITH ALL BELONGINGS.
[2020-07-31 14:09] LABS: CEA 2.2 ng/mL (0.0-4.7)
[2020-08-01 13:08] LABS: CA 19-9 <2 U/mL (0-35)
== END 2020-07-31 13:38 | disposition home or self-care (01) | DRG 300 ==
LOC: D.ER 17:25 → D.MS 22:03
PROVIDERS: Emergency Medicine; Family Medicine; Internal Medicine Hematology & Oncology; ADMIT Family Medicine; ATTEND Family Medicine
DX: I82.401 Acute embolism and thrombosis of unspecified deep veins of right lower extremity (principal); F17.203 Nicotine dependence unspecified, with withdrawal; D64.9 Anemia, unspecified; I10 Essential (primary) hypertension; E78.5 Hyperlipidemia, unspecified; E11.9 Type 2 diabetes mellitus without complications; K21.9 Gastro-esophageal reflux disease without esophagitis

== ENCOUNTER 2021-01-28 09:45 | Day surgery (SDC) | payer OTHER ==
[2021-01-24 15:22] LABS: BASOPHILS 0.2 % (0-2); EOSINOPHILS 1.7 % (0-7); HEMATOCRIT 44.4 % (42.0-54.0); HEMOGLOBIN 15.8 g/dL (13.5-17.5); LYMPHOCYTE ABS# 2.86 10x3/uL (1.32-3.57); LYMPHOCYTES 47.4 % (15-50); MCH 31.4 pg (26.0-34.0); MCHC 35.6 g/dL (31.0-37.0); MCV 88.3 fL (80.0-100.0); MEAN PLATELET VOLUME 9.3 fL (7.4-10.4); MONOCYTES 7.1 % (2-11); NEUTROPHIL ABS# 2.64 10x3/uL (1.78-5.38); NEUTROPHILS 43.6 % (40-80); PLATELET COUNT 191 10x3/uL (130-400); RBC 5.03 10x6/uL (4.20-6.10); RDW 12.6 % (11.5-14.5)
[2021-01-24 15:51] LABS: CALC OSMOLALITY 268 mosm/kg (275-300); CALCIUM 8.7 mg/dL (8.5-10.1); CHLORIDE - SERUM 97 mmol/L (98-107); CREATININE - SERUM 0.9 mg/dL (0.6-1.3); GLUCOSE 163 mg/dL (74-106); SODIUM 133 mmol/L (136-145); UREA NITROGEN 11 mg/dL (7-18); eGFR NON AFRICAN AMERICAN > 90 mL/min (90-120)
[~2021-01-28] VITALS: Ht 180.3 cm; Wt 113.4 kg
[~2021-01-28 09:45] MED LIST changes: +ELIQUIS5 MG PO; +GLIPIZIDE5 MG PO; +HYDROCODON-ACE1 EA10 PO; +PROTONIX40 MG PO; +PROZAC20 MG PO; +REQUIP0.25 MG PO; +SOLIQUA 100 UNIT3 ML SQ
[2021-01-28 10:24] VITALS: BP 126/84; Ht 180.3 cm; Wt 113.4 kg
--- NOTE | 2021-01-29 08:22 | OP ---
PATIENT NAME: RICARDA CHAUDHARY MEDICAL RECORD: [id number] :75 LOCATION:[facility] ADMISSION DATE: SURGEON: JIM LLOYD DO DATE OF OPERATION: 01/28/2021 PROCEDURE PERFORMED: Right elbow lateral epicondylectomy. PREOPERATIVE DIAGNOSIS: Right tennis elbow. POSTOPERATIVE DIAGNOSIS: Right tennis elbow. INDICATIONS: Mr. Chaudhary is a 45-year-old male, who has had several injections of this right tennis elbow to no avail. He has had an MRI showing a partial tear of the ECRB. He wanted something done surgically. He was aware of the risks including retear, infection, bleeding, loss of motion of the elbow, continued pain, damage to the radial nerve and need for further surgery, he signed the consent. SURGEON: Jim Lloyd DO DESCRIPTION OF PROCEDURE: The patient received a block by anesthesia in the preoperative area, given 2 grams of Ancef. He was then taken to the operative suite, laid in supine position, given general anesthetic and LMA was placed. Right upper extremity was then prepped and draped in sterile fashion. Everyone was in agreeance with the correct side, site, patient and procedure. I then exsanguinated the right upper extremity with an Esmarch, the tourniquet was inflated to 250 mmHg, it was up for 11 minutes. We then made an incision over the lateral epicondyle of the elbow, made careful dissection to the lateral epicondyle, went right through the tendon of the extensor digitorum communis and extensor carpi radialis longus, exposed the extensor carpi radialis brevis tendon and debrided it and peeled it off the lateral epicondyle and then used a rongeur to remove part of the lateral epicondyle to get bleeding bone. I then put a 1.45 JuggerKnot anchor in and then sutured up to the tendon and then tied it down and then the tourniquet was let down. Any bleeding was coagulated with a pickup and Bovie. Rachel Ty, certified surgical [employer] assistant manager then closed with 3-0 Vicryl inverted interrupted fashion, 4-0 Monocryl ran on the skin, placed Steri-Strips, Adaptic, 4 x 4, cast padding and Alton wrap on the elbow and then he was put in a wrist splint as well. He was awakened and taken to recovery in stable condition. BLOOD LOSS: Minimal. COMPLICATIONS: None. TRANSINT:[id number] Voice Confirmation ID: [id number] DOCUMENT ID: [id number] JIM LLOYD DO at 0822 CC: [id number] DICTATION DATE: 01/28/21 1253 CAR PACKER: 01/28/21 2350 [facility] 01/28/21 [facility] [address] [place] [id number]
== END 2021-01-28 14:15 | disposition home or self-care (01) ==
LOC: D.OPS 09:45
PROVIDERS: Anesthesiology; ATTEND Orthopaedic Surgery
DX: M77.11 Lateral epicondylitis, right elbow (principal); M25.521 Pain in right elbow